=== PATIENT | female | born 2000 | race African-American/Black ===

== ENCOUNTER 2023-08-30 10:32 | Emergency (ER) | payer MEDICAID, OTHER ==
[~2023-08-30] VITALS: Ht 160 cm; Wt 57.0 kg
[2023-08-30 10:42] VITALS: O2SAT 100
[2023-08-30] MEDS: ONDANSETRON 4MG ODT PO STA (11:51)
[2023-08-30] MEDS ORDERED: IBUPROFEN 600MG TABLET PO ONE (12:00)
[2023-08-30 12:06] LABS: BASOPHILS % 0.2 % (0.0-2.0); EOSINOPHILS % 0.2 % (0.0-5.0); HEMATOCRIT. 31.5 % (36.0-48.0); HEMOGLOBIN. 9.8 g/dL (12.0-16.0); LYMPHOCYTES % 10.2 % (20.0-50.0); MEAN CORPUSCULAR HEMOGLOBIN 25.9 pg (28.0-32.0); MEAN CORPUSCULAR HGB CONC 31.3 g/dL (31.0-37.0); MEAN CORPUSCULAR VOLUME 82.8 fL (81.0-99.0); MEAN PLATELET VOLUME 8.9 fl (7.4-10.4); MONOCYTES % 5.7 % (2.0-8.0); NEUTROPHILS % 83.7 % (40.0-76.0); PLATELET 267 x1000/uL (130-400); RED CELL DISTRIBUTION WIDTH 17.3 % (11.6-14.6); WHITE BLOOD COUNT 14.8 x1000/uL (4.5-11.0)
[2023-08-30 12:13] LABS: CHLORIDE 111 mEq/L (98-107); POTASSIUM 3.8 mEq/L (3.5-5.1); SODIUM 138 mEq/L (136-145)
[2023-08-30 12:14] LABS: CALCIUM 8.6 mg/dL (8.7-10.4); CARBON DIOXIDE 22 mEq/L (21-32)
[2023-08-30 12:19] LABS: CREATININE 0.8 mg/dL (0.6-1.0); GLUCOSE 89 mg/dL (70-105); UREA NITROGEN BLOOD 8 mg/dL (9-23)
[2023-08-30] MEDS: KETOROLAC 30MG/ML VIAL IM ONE (12:45)
[2023-08-30 13:09] LABS: CLARITY URINE CLOUDY (CLEAR); COLOR URINE YELLOW (YELLOW); GLUCOSE URINE NEGATIVE (NEGATIVE); KETONES URINE TRACE (NEGATIVE); LEUKOCYTE ESTERASE URINE TRACE (NEGATIVE); NITRITE URINE NEGATIVE (NEGATIVE); OCCULT BLOOD URINE 3+ (NEGATIVE); PH URINE 5.5 (4.5-8.0); PROTEIN URINE 1+ (NEGATIVE); SPECIFIC GRAVITY URINE 1.029 (1.005-1.030); UROBILINOGEN URINE 0.2 E.U./dL (0.2-1.0)
[2023-08-30 13:20] LABS: BACTERIA URINE TRACE; RBC URINE TNTC /hpf (0-2); SQUAMOUS EPITHELIAL CELL URINE 2+ /lpf (RARE/1+); YEAST URINE NONE SEEN
[2023-08-30] MEDS ORDERED: IBUP-2028 MT (13:46)
[2023-08-30] MEDS ORDERED: FERR325T6 MT (13:46)
[2023-08-30] MEDS ORDERED: ACET-2708 MT (13:46)
[2023-08-30 14:40] VITALS: BP 112/68; PULSE 64; RESP 18; TEMP 98.2
== END 2023-08-30 14:40 | disposition home or self-care (01) ==
LOC: ER 10:53
DX: N94.6 Dysmenorrhea, unspecified (principal); J45.909 Unspecified asthma, uncomplicated
CPT/HCPCS: 99285; 76700; 80048; 81003; 81025; 85025; 36415; 96372; Q0162; J1885

== ENCOUNTER 2023-11-11 06:55 | Emergency (ER) | payer MEDICAID, OTHER ==
[~2023-11-11] VITALS: Ht 162.6 cm; Wt 56.0 kg
[~2023-11-11 06:55] MED LIST: ACET-2708 MT; FERR325T6 MT; IBUP-2028 MT
[2023-11-11 06:57] VITALS: O2SAT 100
[2023-11-11] MEDS: KETOROLAC 30MG/ML VIAL IV NR (07:47)
[2023-11-11] MEDS: ONDANSETRON HCL 4MG/2ML INJ IV NR (07:47)
[2023-11-11] MEDS: MORPHINE SULFATE 4 MG/ML INJ (FOR IV/IM USE) IV STA (08:13)
[2023-11-11 08:36] LABS: BASOPHILS % 0.1 % (0.0-2.0); HEMATOCRIT. 36.6 % (36.0-48.0); HEMOGLOBIN. 11.3 g/dL (12.0-16.0); LYMPHOCYTES % 9.2 % (20.0-50.0); MEAN CORPUSCULAR VOLUME 84.1 fL (81.0-99.0); MEAN PLATELET VOLUME 9.3 fl (7.4-10.4); MONOCYTES % 4.4 % (2.0-8.0); NEUTROPHILS % 86.3 % (40.0-76.0); PLATELET 240 x1000/uL (130-400); RED BLOOD CELL COUNT 4.36 mill/uL (4.2-5.4); RED CELL DISTRIBUTION WIDTH 23.6 % (11.6-14.6); WHITE BLOOD COUNT 18.8 x1000/uL (4.5-11.0)
[2023-11-11 08:43] LABS: CHLORIDE 107 mEq/L (98-107); POTASSIUM 3.5 mEq/L (3.5-5.1); SODIUM 138 mEq/L (136-145)
[2023-11-11 08:44] LABS: CARBON DIOXIDE 22 mEq/L (21-32)
[2023-11-11 08:45] LABS: CALCIUM 9.3 mg/dL (8.7-10.4)
[2023-11-11 08:48] LABS: ADD RBC MORPHOLOGY YES; DIFFERENTIAL COMMENT 1
[2023-11-11 08:49] LABS: CREATININE 0.8 mg/dL (0.6-1.0); GLUCOSE 177 mg/dL (70-105)
[2023-11-11 08:50] LABS: UREA NITROGEN BLOOD 6 mg/dL (9-23)
[2023-11-11 08:51] LABS: ALANINE AMINOTRANSFERASE 20 IU/L (10-49); ALBUMIN 4.1 g/dL (3.2-4.8); ASPARTATE AMINOTRANSFERASE 22 IU/L (<34)
[2023-11-11 08:52] LABS: BILIRUBIN TOTAL 0.3 mg/dL (0.1-1.0); PROTEIN TOTAL 6.5 g/dL (6.0-8.3)
[2023-11-11 08:54] LABS: BILIRUBIN DIRECT < 0.1 mg/dL (<=3.0)
[2023-11-11 09:02] LABS: HCG SCREEN NEGATIVE
[2023-11-11] MEDS ORDERED: IOHEXOL-300 100 ML BOTTLE ONE (10:13)
[2023-11-11 10:35] LABS: PLATELET ESTIMATE NORMAL
[2023-11-11 10:36] LABS: ANISOCYTOSIS 2+
[2023-11-11] MEDS: SODIUM CHLORIDE 0.9% 1,000 ML IV ONE (11:05)
[2023-11-11] MEDS ORDERED: HYDR-4001 MT (13:05)
[2023-11-11] MEDS ORDERED: ONDA-239 PO (13:06)
[2023-11-11 13:14] VITALS: BP 108/65; PULSE 66; RESP 16; TEMP 36.66960; O2SAT 100
== END 2023-11-11 13:29 | disposition home or self-care (01) ==
LOC: ER 06:55
DX: R10.9 Unspecified abdominal pain (principal)
CPT/HCPCS: 80076; 80048; 81025; 84703; 83690; 85025; 36415; 74177; 76830; 76856; 96361; 96374; 96375; 99285; Q9967; J1885; J2405; J2270; J7030; Z7610 ×3

== ENCOUNTER 2023-11-27 20:57 | Emergency (ER) | payer MEDICAID, OTHER ==
[~2023-11-27] VITALS: Ht 165.1 cm; Wt 54.0 kg
[~2023-11-27 20:57] MED LIST changes: +HYDR-4001 MT; +ONDA4TAB11 PO
[2023-11-27 21:06] VITALS: TEMP 97.7; O2SAT 100
[2023-11-27 21:34] LABS: ADD RBC MORPHOLOGY YES; BASOPHILS % 0.3 % (0.0-2.0); DIFFERENTIAL COMMENT 1; EOSINOPHILS % 0.3 % (0.0-5.0); HEMATOCRIT. 33.5 % (36.0-48.0); HEMOGLOBIN. 10.7 g/dL (12.0-16.0); LYMPHOCYTES % 19.1 % (20.0-50.0); MEAN CORPUSCULAR VOLUME 87.5 fL (81.0-99.0); MEAN PLATELET VOLUME 8.8 fl (7.4-10.4); MONOCYTES % 6.9 % (2.0-8.0); NEUTROPHILS % 73.4 % (40.0-76.0); PLATELET 268 x1000/uL (130-400); RED BLOOD CELL COUNT 3.83 mill/uL (4.2-5.4); RED CELL DISTRIBUTION WIDTH 22.9 % (11.6-14.6); WHITE BLOOD COUNT 23.3 x1000/uL (4.5-11.0)
[2023-11-27 21:40] LABS: CHLORIDE 111 mEq/L (98-107); POTASSIUM 3.4 mEq/L (3.5-5.1); SODIUM 139 mEq/L (136-145)
[2023-11-27 21:41] LABS: CARBON DIOXIDE 22 mEq/L (21-32)
[2023-11-27 21:42] LABS: CALCIUM 8.9 mg/dL (8.7-10.4)
[2023-11-27 21:45] LABS: HCG SCREEN NEGATIVE
[2023-11-27 21:46] LABS: CREATININE 0.9 mg/dL (0.6-1.0); GLUCOSE 161 mg/dL (70-105)
[2023-11-27 21:47] LABS: UREA NITROGEN BLOOD 6 mg/dL (9-23)
[2023-11-27 21:48] LABS: ALANINE AMINOTRANSFERASE 15 IU/L (10-49); ALBUMIN 3.9 g/dL (3.2-4.8); ASPARTATE AMINOTRANSFERASE 20 IU/L (<34)
[2023-11-27 21:49] LABS: BILIRUBIN TOTAL 0.2 mg/dL (0.1-1.0); INR 0.9; PROTEIN TOTAL 6.2 g/dL (6.0-8.3); PROTHROMBIN TIME 10.2 sec (9.6-11.0)
[2023-11-27 21:50] LABS: BILIRUBIN DIRECT < 0.1 mg/dL (<=3.0)
[2023-11-27 21:54] LABS: ANISOCYTOSIS 2+; PLATELET ESTIMATE NORMAL
[2023-11-27] MEDS: HALOPERIDOL LACTATE 5MG/ML VIAL IM ONE (22:27)
[2023-11-27 22:31] VITALS: BP 123/67; PULSE 56; RESP 16
[2023-11-27] MEDS: MORPHINE SULFATE 4 MG/ML INJ (FOR IV/IM USE) IV ONE (22:31)
[2023-11-28] MEDS: SODIUM CHLORIDE 0.9% 1,000 ML IV ONE (00:47)
[2023-11-28 02:19] LABS: HEMATOCRIT. 31.7 % (36.0-48.0); HEMOGLOBIN. 10.4 g/dL (12.0-16.0); MEAN CORPUSCULAR HEMOGLOBIN 28.2 pg (28.0-32.0); MEAN CORPUSCULAR HGB CONC 32.8 g/dL (31.0-37.0); MEAN CORPUSCULAR VOLUME 86.2 fL (81.0-99.0); PLATELET 221 x1000/uL (130-400); RED BLOOD CELL COUNT 3.68 mill/uL (4.2-5.4); RED CELL DISTRIBUTION WIDTH 22.7 % (11.6-14.6)
[2023-11-28 02:21] LABS: DIFFERENTIAL COMMENT 1
[2023-11-28] MEDS ORDERED: CEFTRIAXONE 1GM/50ML 50 ML IV NR (02:45)
[2023-11-28] MEDS: CAPSAICIN 0.075% CREAM 57GM TOP PRN (02:54)
[2023-11-28 03:35] LABS: CLARITY URINE CLEAR (CLEAR); COLOR URINE YELLOW (YELLOW); GLUCOSE URINE NEGATIVE (NEGATIVE); KETONES URINE 1+ (NEGATIVE); LEUKOCYTE ESTERASE URINE TRACE (NEGATIVE); NITRITE URINE NEGATIVE (NEGATIVE); OCCULT BLOOD URINE 3+ (NEGATIVE); PH URINE 5.5 (4.5-8.0); PROTEIN URINE NEGATIVE (NEGATIVE); SPECIFIC GRAVITY URINE 1.022 (1.005-1.030); UROBILINOGEN URINE 0.2 E.U./dL (0.2-1.0)
[2023-11-28 07:27] LABS: SQUAMOUS EPITHELIAL CELL URINE 1+ /lpf (RARE/1+)
[2023-11-28 07:29] LABS: RBC URINE 0-2 /hpf (0-2)
[2023-11-28 07:30] LABS: BACTERIA URINE TRACE
[2023-11-28 08:09] LABS: PLATELET ESTIMATE NORMAL
== END 2023-11-28 03:55 | disposition left against medical advice (07) ==
LOC: ER 20:57
DX: D72.829 Elevated white blood cell count, unspecified (principal); F12.10 Cannabis abuse, uncomplicated; Z79.899 Other long term (current) drug therapy
CPT/HCPCS: 99291; 96374; 80076; 80048; 84703; 83690; 85025 ×2; 85610; 36415 ×2; 93005; 96372; 76830; 76856; 93976; 96361; 81003; J1630; J2270; J7030; J0696

== ENCOUNTER 2025-03-04 11:25 | Emergency (ER) | payer MEDICAID ==
[~2025-03-04] VITALS: Ht 165.1 cm; Wt 70.0 kg
[~2025-03-04 11:25] MED LIST changes: +ONDA-239 PO; -ONDA4TAB11 PO
[2025-03-04 11:27] VITALS: O2SAT 98
[2025-03-04] MEDS: ONDANSETRON HCL 4MG/2ML INJ IV ONE (12:08)
[2025-03-04] MEDS: SODIUM CHLORIDE 0.9% 1,000 ML IV ONE (12:08)
[2025-03-04] MEDS: MORPHINE SULFATE 4 MG/ML INJ (FOR IV/IM USE) IV ONE ×2 (12:14→14:26)
[2025-03-04 12:20] LABS: BASOPHILS % 0.2 % (0.0-2.0); EOSINOPHILS % 0.4 % (0.0-5.0); HEMATOCRIT. 41.8 % (36.0-48.0); HEMOGLOBIN. 13.8 g/dL (12.0-16.0); LYMPHOCYTES % 17.3 % (20.0-50.0); MEAN PLATELET VOLUME 9.8 fl (7.4-10.4); MONOCYTES % 5.4 % (2.0-8.0); NEUTROPHILS % 76.7 % (40.0-76.0); PLATELET 235 x1000/uL (130-400); RED BLOOD CELL COUNT 4.20 mill/uL (4.2-5.4); RED CELL DISTRIBUTION WIDTH 13.8 % (11.6-14.6)
[2025-03-04 12:25] LABS: HCG SCREEN NEGATIVE
[2025-03-04 12:39] LABS: CREATININE 0.9 mg/dL (0.6-1.0); ETHANOL BLOOD < 10 mg/dL (<10); UREA NITROGEN BLOOD 7 mg/dL (9-23)
[2025-03-04 12:41] LABS: ASPARTATE AMINOTRANSFERASE 21 IU/L (<34); BILIRUBIN DIRECT < 0.1 mg/dL (<=3.0); BILIRUBIN TOTAL 0.3 mg/dL (0.1-1.0); PROTEIN TOTAL 6.0 g/dL (6.0-8.3)
[2025-03-04] MEDS ORDERED: METOCLOPRAMIDE HCL 10MG/2ML VIAL IV ONE (13:45)
[2025-03-04 16:56] VITALS: BP 103/57; PULSE 77; RESP 18; TEMP 36.9; O2SAT 97
== END 2025-03-04 16:55 | disposition left against medical advice (07) ==
LOC: ER 11:25 → EDBEDREQSVC 14:27 → EDBEDREQ 14:27 → ENRESERV 15:12 → ER 16:55 → CMPBEDREQ 03-06 10:27
DX: R10.20 Pelvic and perineal pain unspecified side (principal); R11.2 Nausea with vomiting, unspecified; R19.7 Diarrhea, unspecified; I49.1 Atrial premature depolarization; F10.90 Alcohol use, unspecified, uncomplicated; F12.90 Cannabis use, unspecified, uncomplicated; Y90.9 Presence of alcohol in blood, level not specified
CPT/HCPCS: 80076; 80048; 80320; 84703; 83690; 83735; 85025; 36415; 93005; 96361; 96374; 96375; 96376; 99291; J2405; J2270; J7030; Z7610; J2765; G0480